=== PATIENT | male | born 1940 | race Caucasian/White ===

== ENCOUNTER 2021-05-02 11:07 | Emergency (ER) | payer BC ==
[2021-05-02] MEDS ORDERED: NA CHLORIDE 0.9% 500 ML ONE (11:45)
[2021-05-02 11:46] LABS: Absolute Lymphocytes (CBC) 1.6 K/uL (0.7-4.9); Lymphocytes % 19.2 % (15.3-44.8); MPV 7.5 fL (7.6-11.3); RBC Red Blood Cell Count 4.35 M/uL (4.33-5.43)
[2021-05-02 12:01] LABS: Albumin 3.9 g/dL (3.4-5.0); Bilirubin Direct 0.1 mg/dL (0-0.2); Bilirubin Total 0.6 mg/dL (0.2-1.0); Potassium 4.4 mmol/L (3.5-5.1); Protein, Total 7.6 g/dL (6.4-8.2)
--- NOTE | 2021-05-02 12:42 | RAD REPORT ---
EXAM DESCRIPTION: CT - Abdomen Pelvis Wo Contrast - 05/02/2021 12:24 pm CLINICAL HISTORY: CONSTIPATION , abdominal pain COMPARISON: No comparisons TECHNIQUE: Axial [address] imaging of the abdomen and pelvis was performed without IV contrast. No IV contrast was given because of allergy, abnormal renal function, patient refusal or physician re quest. No oral contrast administered. All CT scans are performed using dose optimization technique as appropriate and may include automated exposure control or mA/KV adjustment according to patient size. FINDINGS: No suspicious findings in the lung bases. The liver, spleen and pancreas show no suspicious findings on non-contrast imaging. Gallbladder and b iliary tree are also without suspicious finding. No hydronephrosis or suspicious renal mass. A 5 centimeter thin-walled fluid attenuation mass lower p ole left kidney is almost certainly an incidental cyst. Minimal symmetric perinephric stranding prese nt. No significant adrenal finding. Isodense renal masses and pyelonephritis cannot be excluded in th e absence of IV contrast. The urinary bladder is without significant finding. Prostate gland is not e nlarged. Pelvic floor assessment is limited due to spray artifact from right hip prosthesis. Very minimal hiatal hernia is present. No gastric wall thickening or mass suspected. Assessment is li mited due to fully decompressed stomach. Small bowel loops are not dilated. There are several fluid-f illed prominent distal small bowel loops. The appendix is unremarkable. Moderate stool volume fills t he colon from cecum through splenic flexure. Extensive diverticulosis extends from the descending col on to the mid rectum level. No acute diverticulitis or obstructing mass. No stranding, edema or other acute colon process. No free air, free fluid or inflammatory stranding. No mass or bulky lymphadenopathy seen. Patient silva s small bilateral fat filled inguinal hernias. Disc and bone degenerative changes are present. This is most prominent at L4-5 and L5-S1. Postsurgica l changes are present at L4. No pathologic bone process. IMPRESSION: Moderate stool volume fills but does not dilate the colon from cecum to splenic flexure. Patient has prominent diverticulosis of the descending, sigmoid and proximal rectum portions of the colon. No obstructing mass, diverticulitis or acute colon process identified. Prominent distal small bowel loops may be related to the constipation pattern. Small bowel enteritis is possible. Full assessment is limited is the absence of IV contrast.
--- NOTE | 2021-05-02 14:01 | ER ---
Nurse's Notes [facility] Name: Brendan Li Age: 81 yrs Sex: Male : 1940 Arrival Date: 05/02/2021 Time: 11:11 Bed 19 Private MD: Diagnosis: Constipation, unspecified Presentation: 05/02 11:29 Chief complaint: Patient states: constipationx 1 week, LBM today, small blackburn color eo2 pellets, not his normal BM, colonoscopy 4 years ago, no abd pain. n/v. Coronavirus screen: Vaccine status: Patient reports receiving the 2nd dose of the covid vaccine. Client denies travel out of the [place] in the last 14 days. Ebola Screen: Patient negative for fever greater than or equal to 101.5 degrees Fahrenheit, and additional compatible Ebola Virus Disease symptoms Patient denies exposure to infectious person. Patient denies travel to an Ebola-affected area in the 21 days before illness onset. Initial Sepsis Screen: Does the patient meet any 2 criteria? No. Patient's initial sepsis screen is negative. Does the patient have a suspected source of infection? No. Patient's initial sepsis screen is negative. Risk Assessment: Do you want to hurt yourself or someone else? Patient reports no desire to harm self or others. Onset of symptoms is unknown. 11:29 Method Of Arrival: Ambulatory eo2 11:29 Acuity: ZACK 3 eo2 Triage Assessment: 11:36 General: Appears in no apparent distress. Behavior is calm, cooperative. Pain: Denies eo2 pain. Historical: - Allergies: 11:31 No Known Allergies; eo2 - Home Meds: 11:31 hydralazine 100 mg Oral tab 1 tab 2 times per day [Active]; metoprolol tartrate 100 mg eo2 Oral tab 1 tab 2 times per day [Active]; isosorbide mononitrate 30 mg Oral Tb24 1 tab once daily [Active]; digoxin 125 mcg (0.125 mg) Oral tab 1 tab 3x /week [Active]; levothyroxine 175 mcg cap 1 cap once daily for hypothyroidism [Active]; losartan 100 mg oral tab 1 tab once daily [Active]; allopurinol 100 mg Oral tab 1 tab once daily [Active]; aspirin 81 mg Oral TbEC 1 tab 3 times a week [Active]; Fish Oil oral cap [Active]; omeprazole 20 mg Oral cpDR 1 cap once daily [Active]; chlorthalidone 25 mg Oral tab 1 tab once daily [Active]; - PMHx: 11:31 Hypertensive disorder; Hypothyroidism; Coronary atherosclerosis; Gout; GERD; eo2 - PSHx: 11:31 Hip replacement; eo2 11:36 back surgery; eo2 11:47 pacemaker; eo2 - Immunization history:: Adult Immunizations up to date, Client reports receiving the 2nd dose of the Covid vaccine. - Social history:: Smoking status: Patient denies any tobacco usage or history of. Screenin:37 Abuse screen: Denies threats or abuse. Denies injuries from another. Nutritional eo2 screening: No deficits noted. Tuberculosis screening: No symptoms or risk factors identified. Fall Risk None identified. Assessment: 11:37 General: Appears in no apparent distress. comfortable, Behavior is calm, cooperative. eo2 Pain: Denies pain. Neuro: Level of Consciousness is awake, alert, obeys commands, Oriented to person, place, time, Denies dizziness, headache. Cardiovascular: Denies chest pain, shortness of breath, Heart tones S1 S2 Capillary refill < 3 seconds. Respiratory: Airway is patent Trachea midline Respiratory effort is even, unlabored, Respiratory pattern is regular, symmetrical, Breath sounds are clear bilaterally. Denies shortness of breath. GI: Abdomen is non-distended, Bowel sounds present X 4 quads. Reports constipation, Patient currently denies abdominal pain, nausea, vomiting. Vital Signs: 11:22 BP 158 / 84; Pulse 69; Resp 16; Temp 98(T); Pulse Ox 98% on R/A; ic1 11:46 BP 119 / 66; Pulse 60; Resp 13; Pulse Ox 97% ; Pain 0/10; eo2 13:00 BP 125 / 69; Pulse 60; Resp 15; Pulse Ox 98% ; Pain 0/10; eo2 14:55 BP 133 / 76; Pulse 60; Resp 15; Pulse Ox 97% ; Pain 0/10; eo2 ED Course: 11:11 Patient arrived in ED. ds1 11:19 Reymundo Norris NP is PHCP. pm1 11:19 Nino Callaway MD is Attending Physician. pm1 11:28 Shahrzad Downey RN is Primary Nurse. eo2 11:31 Triage completed. eo2 11:36 Arm band placed on. eo2 11:37 Patient has correct armband on for positive identification. Pulse ox on. NIBP on. Door eo2 closed. Noise minimized. Warm blanket given. 11:37 No provider procedures requiring assistance completed. Inserted saline lock: 20 gauge eo2 in right antecubital area, using aseptic technique. Blood collected. 11:40 Lipase Sent. eo2 11:40 CBC with Diff Sent. eo2 11:40 Hepatic Function Sent. eo2 11:40 Basic Metabolic Panel Sent. eo2 11:40 Basic Metabolic Panel Sent. eo2 11:40 Liver (Hepatic) Function Sent. eo2 12:24 Abdomen In Process Unspecified. EDMS 14:55 IV discontinued, intact. eo2 Administered Medications: 11:46 Drug: NS 0.9% 500 ml Route: IV; Rate: bolus; Site: right antecubital; eo2 13:00 Follow up: Response: No adverse reaction; IV Status: Completed infusion; IV Intake: eo2 500ml Intake: 13:00 IV: 500ml; Total: 500ml. eo2 Outcome: 14:00 Discharge ordered by . pm1 14:55 Discharged to home ambulatory. eo2 14:55 Condition: stable 14:55 Discharge instructions given to patient, Instructed on discharge instructions, follow up and referral plans. medication usage, Demonstrated understanding of instructions, follow-up care, medications, Prescriptions given X 1. 14:57 Patient left the ED. eo2 Signatures: Dispatcher [employer] EDNY Alexander, Caty 1 Reymundo Norris NP NET SOFTWARE ARCHITECT pm1 Shahrzad Downey RN RN eo2 Roxi Coleman RN RN ic1
--- NOTE | 2021-05-02 14:01 | EDPHYS ---
Physician Documentation [facility] Name: Brendan Li Age: 81 yrs Sex: Male : 1940 Arrival Date: 05/02/2021 Time: 11:11 Bed 19 Private MD: ED Physician Nino Callaway HPI: 05/02 11:45 This 81 yrs old Male presents to ER via Ambulatory with complaints of Constipation. pm1 11:45 The patient presents with constipation. Onset: The symptoms/episode began/occurred 1 pm1 week(s) ago. The symptoms do not radiate. Associated signs and symptoms: Pertinent negatives: nausea, vomiting, and diarrhea, chest pain, dysuria, fever, shortness of breath, abdominal pain. Modifying factors: The symptoms are alleviated by magnesium citrate 1 week ago. pebble like stool yesterday and today. The patient has experienced similar episodes in the past, a few times. The patient has not recently seen a physician. Historical: - Allergies: : No Known Allergies; eo2 - Home Meds: :31 hydralazine 100 mg Oral tab 1 tab 2 times per day [Active]; metoprolol tartrate 100 mg eo2 Oral tab 1 tab 2 times per day [Active]; isosorbide mononitrate 30 mg Oral Tb24 1 tab once daily [Active]; digoxin 125 mcg (0.125 mg) Oral tab 1 tab 3x /week [Active]; levothyroxine 175 mcg cap 1 cap once daily for hypothyroidism [Active]; losartan 100 mg oral tab 1 tab once daily [Active]; allopurinol 100 mg Oral tab 1 tab once daily [Active]; aspirin 81 mg Oral TbEC 1 tab 3 times a week [Active]; Fish Oil oral cap [Active]; omeprazole 20 mg Oral cpDR 1 cap once daily [Active]; chlorthalidone 25 mg Oral tab 1 tab once daily [Active]; - PMHx: 11:31 Hypertensive disorder; Hypothyroidism; Coronary atherosclerosis; Gout; GERD; eo2 - PSHx: 11:31 Hip replacement; eo2 11:36 back surgery; eo2 11:47 pacemaker; eo2 - Immunization history:: Adult Immunizations up to date, Client reports receiving the 2nd dose of the Covid vaccine. - Social history:: Smoking status: Patient denies any tobacco usage or history of. ROS: 11:45 Constitutional: Negative for fever, chills, and weight loss, Cardiovascular: Negative pm1 for chest pain, palpitations, and edema, Respiratory: Negative for shortness of breath, cough, wheezing, and pleuritic chest pain. 11:45 Back: Negative for injury and pain, MS/Extremity: Negative for injury and deformity, Skin: Negative for injury, rash, and discoloration, Neuro: Negative for headache, weakness, numbness, tingling, and seizure. 11:45 Abdomen/GI: Positive for constipation, Negative for abdominal pain, nausea, vomiting, and diarrhea. 11:45 All other systems are negative. Exam: 11:45 Constitutional: This is a well developed, well nourished patient who is awake, alert, pm1 and in no acute distress. Head/Face: Normocephalic, atraumatic. 11:45 Back: No spinal tenderness. No costovertebral tenderness. Full range of motion. Skin: Warm, dry with normal turgor. Normal color with no rashes, no lesions, and no evidence of cellulitis. MS/ Extremity: Pulses equal, no cyanosis. Neurovascular intact. Full, normal range of motion. 11:45 Cardiovascular: Exam negative for acute changes, Rate: normal, Rhythm: regular, Pulses: no pulse deficits are appreciated. 11:45 Respiratory: Exam negative for acute changes, respiratory distress, shortness of breath. 11:45 Abdomen/GI: Inspection: abdomen appears normal, Palpation: abdomen is soft and non-tender, in all quadrants. 11:45 Neuro: Exam negative for acute changes, Orientation: is normal, Mentation: is normal, Motor: is normal, moves all fours. Vital Signs: 11:22 BP 158 / 84; Pulse 69; Resp 16; Temp 98(T); Pulse Ox 98% on R/A; ic1 11:46 BP 119 / 66; Pulse 60; Resp 13; Pulse Ox 97% ; Pain 0/10; eo2 13:00 BP 125 / 69; Pulse 60; Resp 15; Pulse Ox 98% ; Pain 0/10; eo2 14:55 BP 133 / 76; Pulse 60; Resp 15; Pulse Ox 97% ; Pain 0/10; eo2 MDM: 11:24 Patient medically screened. pm1 14:00 Data reviewed: vital signs. Data interpreted: Pulse oximetry: on room air is 97 %. pm1 Interpretation: normal. Counseling: I had a detailed discussion with the patient and/or guardian regarding: the historical points, exam findings, and any diagnostic results supporting the discharge/admit diagnosis, lab results, radiology results, the need for outpatient follow up, to return to the emergency department if symptoms worsen or persist or if there are any questions or concerns that arise at home. 14:03 ED course: Patient offered additional IV fluids. Patient refused. He wants to go home pm1 and drink more fluids. Patient is just drinking 2 bottles of water per day. With fiber supplements that is likely causing his constipation. 05/02 11:25 Order name: Basic Metabolic Panel pm1 05/02 11:25 Order name: CBC with Diff; Complete Time: 12:05 pm1 05/02 11:25 Order name: Hepatic Function pm1 05/02 11:25 Order name: Lipase; Complete Time: 12:05 pm1 05/02 11:26 Order name: Basic Metabolic Panel; Complete Time: 12:05 EDMS 05/02 11:26 Order name: Liver (Hepatic) Function; Complete Time: 12:05 EDMS 05/02 11:25 Order name: IV Saline Lock; Complete Time: 11:40 pm1 05/02 11:25 Order name: Labs collected and sent; Complete Time: 11:40 pm1 05/02 12:11 Order name: Abdomen ; Complete Time: 12:48 EDMS Administered Medications: 11:46 Drug: NS 0.9% 500 ml Route: IV; Rate: bolus; Site: right antecubital; eo2 13:00 Follow up: Response: No adverse reaction; IV Status: Completed infusion; IV Intake: eo2 500ml Disposition Summary: 05/02/21 14:00 Discharge Ordered Location: Home pm1 Problem: new pm1 Symptoms: have improved pm1 Condition: Stable pm1 Diagnosis - Constipation, unspecified pm1 Followup: pm1 - With: Emergency Department - When: As needed - Reason: Worsening of condition Followup: pm1 - With: Private Physician - When: 2 - 3 days - Reason: Recheck today's complaints, Continuance of care, Re-evaluation by your physician Discharge Instructions: - Discharge Summary Sheet pm1 - Constipation, Adult pm1 Forms: - Medication Reconciliation Form pm1 - Thank You Letter pm1 - Antibiotic Education pm1 - Prescription Opioid Use pm1 Prescriptions: - Lactulose 10 gram/15 mL Oral Solution - take 30 milliliters by ORAL route once daily; 300 milliliter; Refills: 0, pm1 Product Selection Permitted Addendum: 05/04/2021 00:00 Co-signature as Attending Physician, Nino Callaway MD I agree with the assessment and k dr plan of care. Signatures: Dispatcher [employer] EDMS Nino Callaway MD MD [facility] Reymundo Norris NP [employer] pm1 Shahrzad Downey RN RN eo2 Corrections: (The following items were deleted from the chart) 05/02 12:11 11:26 Abdomen Pelvis W Con+CT.RAD.BRZ ordered. [facility] EDCT
[2021-05-02 15:14] VITALS: TEMP 98
[2021-05-02 15:18] VITALS: BP 133/76; O2SAT 97
== END 2021-05-02 14:57 | disposition home or self-care (01) ==
LOC: ER 11:07
DX: K59.00 Constipation, unspecified (principal); I10 Essential (primary) hypertension; E03.9 Hypothyroidism, unspecified; Z95.0 Presence of cardiac pacemaker; Z79.82 Long term (current) use of aspirin
CPT/HCPCS: 85025; 80048; 36415; 80076; 83690; 74176; 96360; 99284; J7040